=== PATIENT | female | born 1995 | race Caucasian/White ===

== ENCOUNTER 2019-03-16 14:20 | Emergency (ER) | payer BC ==
--- NOTE | 2019-03-16 14:59 | UC ---
Eye Complaint HPI - HPI Summary HPI Summary: R eye exposure to formulin at work 1/2 hr ago.. She came straight here. Denies vision changes or pain. - History of Current Complaint Chief Complaint: Alejandroe Stated Complaint: FOREIGN BODY IN EYE Time Seen by Provider: 03/16/19 14:41 Hx Obtained From: Patient Hx Last Menstrual Period: IUD Pain Intensity: 0 Aggravating Factor(s): Nothing Alleviating Factor(s): Nothing - Allergies/Home Medications Allergies/Adverse Reactions: Allergies Allergy/AdvReac Type Severity Reaction Status Date / Time No Known Allergies Allergy Verified 03/16/19 14:43 Home Medications: Home Medications NK [No Home Medications Reported] 03/16/19 [History Confirmed 03/16/19] PMH/Surg Hx/FS Hx/Imm Hx - Additional Past Medical History Additional PMH: no chronic issues Previously Healthy: Yes - Surgical History Surgical History: None - Social History Alcohol Use: Weekly Substance Use Type: None Smoking Status (MU): Never Smoked Tobacco Review of Systems All Other Systems Reviewed And Are Negative: Yes Constitutional: Negative: Fever Eyes: Negative: Blurred Vision, Diplopia, Drainage, Eye Redness Respiratory: Negative: Shortness Of Breath Physical Exam Triage Information Reviewed: Yes Appearance: Well-Appearing Vital Signs: Initial Vital Signs Temp 99.2 F 03/16/19 14:44 Pulse 88 03/16/19 14:44 Resp 18 03/16/19 14:44 BP 109/76 03/16/19 14:44 Pulse Ox 96 03/16/19 14:44 Eyes: Negative: Conjunctiva Clear, Conjunctiva Inflamed, Discharge Respiratory: Positive: No respiratory distress Eye Complaint Course/Dx - Course Course Of Treatment: R eye exposure to formulin x30min . ago and no symptoms. OCULAR pH WAS 7 BILAT. We flushed x20min. After discussion with poison control plan is irrigate with [employer] for 20min then send to a higher level facility with Opthalm consultative sales associate for slit lamp review the the minor risk of retinal damage. pt is stable and amenable to plan. - Differential Dx/Diagnosis Differential Diagnosis/HQI/PQRI: Conjunctivitis, Corneal Abrasion, Other Provider Diagnosis: Chemical exposure Discharge ED - Sign-Out/Discharge Documenting (check all that apply): Patient Departure All imaging exams completed and their final reports reviewed: No Studies - Discharge Plan Condition: Good Disposition: HOME Patient Education Materials: Eye Wash (Into the eye) Referrals: No Primary Care Phys,NOPCP [Primary Care Provider] - Timo Paredes MD [Medical Doctor] - 1 Day (Please urgently see patient after formulin exposure to eye and after 20min. of eye irrigation. Pt will need retinal exam to ensure no injury. We called office ahead of time but unfortunatley no message can be left if pt. is not established. [facility] ED was under diversion but pt knows to go there if any sudden changes happen. ) Additional Instructions: If any changes occur please go to [facility] as they have your information. Please go to [facility] if [facility] cannot see you tomorrow. I have made [facility] aware of your planned visit but there is a slight chance they will only see established patients. The issues is that you will need RETINAL EXAM to ensure no injury. - Billing Disposition and Condition Condition: GOOD Disposition: Home - Attestation Statements Provider Attestation: Per institutional requirements, I have reviewed the chart, however, I was not consulted specifically or made aware of this patient by the midlevel provider. I did not personally evaluate, interact with , or disposition this patient.
== END 2019-03-16 15:45 | disposition home or self-care (01) ==
LOC: UCEAST 14:20
DX: Z77.098 Contact with and (suspected) exposure to other hazardous, chiefly nonmedicinal, chemicals (principal)
CPT/HCPCS: 83986; 99201; G0463